=== PATIENT | female | born 1995 | race African-American/Black ===

== ENCOUNTER 2016-12-14 20:18 | Emergency (ER) | payer BC ==
[2016-12-14] MEDS ORDERED: Acetaminophen 500 MG TAB ONE (20:33)
== END 2016-12-14 21:01 | disposition home or self-care (01) ==
LOC: NAV ERS 20:18
DX: J02.9 Acute pharyngitis, unspecified (principal); J45.909 Unspecified asthma, uncomplicated
CPT/HCPCS: 87081; 87430; 99283